=== PATIENT | female | born 1975 | race Caucasian/White ===

== ENCOUNTER 2021-02-23 07:29 | Day surgery (SDC) | payer OTHER ==
[~2021-02-23] VITALS: Ht 177.8 cm; Wt 116.8 kg
[2021-02-23] VITALS (7 sets, daily range): BP systolic 115–163; BP diastolic 64–93
[2021-02-23 08:42] LABS: HEMATOCRIT 43.9 % (37.0-47.0); IMMATURE GRANULOCYTES 0.2 % (0.0-5.0); MEAN CELL VOLUME 90.3 fL CALC (80.0-100.0); MEAN CORPUSCULAR HGB 28.8 pG CALC (26.0-32.0); MEAN CORPUSCULAR HGB CONC 31.9 g/dL CAL (32.0-36.0); NEUT# 3.45 thou/uL (2.00-7.15); RED BLOOD COUNT 4.86 mill/uL (4.20-5.60); RED CELL DISTRI WIDTH 13.6 % (11.5-15.5)
[2021-02-23 09:57] LABS: ALBUMIN 4.2 g/dL (3.2-5.0); ALKALINE PHOSPHATASE 68 u/l (38-126); ANION GAP 12 (6-22 (CALC)); BILIRUBIN, TOTAL 0.9 mg/dL (0.0-1.4); BUN 12 mg/dL (7-17); BUN/CREATININE RATIO 14 (12-20 (CALC)); CARBON DIOXIDE 27 mmol/l (22-30); CHLORIDE 105 mmol/l (95-108); CREATININE 0.9 mg/dL (0.5-1.0); GFR > 60 ML/MIN (>=60 (CALC)); GFR FOR AFR.AMER. > 60 ML/MIN (>=60 (CALC)); POTASSIUM 3.9 mmol/l (3.5-5.1); SGOT/AST 82 u/l (14-36); SODIUM 139 mmol/l (137-146)
[2021-02-23] MEDS ORDERED: CLONIDINE HCL0.1 MG PO (15:06)
[2021-02-23] MEDS ORDERED: CLONAZEPAM1 M1 PO (15:07)
[2021-02-23] MEDS ORDERED: NALTREXONE50 MG PO (15:08)
[2021-02-24] VITALS: BP 145/77
[2021-02-24 04:00] VITALS: BP 149/80
[2021-02-24 05:05] LABS: ALBUMIN 4.4 g/dL (3.2-5.0); ALKALINE PHOSPHATASE 75 u/l (38-126); ANION GAP 15 (6-22 (CALC)); BILIRUBIN, TOTAL 0.9 mg/dL (0.0-1.4); BUN 13 mg/dL (7-17); BUN/CREATININE RATIO 17 (12-20 (CALC)); CARBON DIOXIDE 24 mmol/l (22-30); CHLORIDE 105 mmol/l (95-108); CREATININE 0.8 mg/dL (0.5-1.0); GFR > 60 ML/MIN (>=60 (CALC)); GFR FOR AFR.AMER. > 60 ML/MIN (>=60 (CALC)); MAGNESIUM 2.3 mg/dL (1.6-2.3); POTASSIUM 3.8 mmol/l (3.5-5.1); SGOT/AST 69 u/l (14-36); SODIUM 139 mmol/l (137-146); TOTAL PROTEIN 8.5 g/dL (6.3-8.2)
[2021-02-24 13:46] VITALS: BP 115/66
[2021-02-24 15:41] VITALS: BP 133/83
[2021-02-24 19:16] VITALS: BP 143/76
[2021-02-24 22:44] VITALS: BP 154/65
[2021-02-25 04:40] VITALS: BP 168/88
[2021-02-25 07:54] VITALS: BP 154/82
== END 2021-02-25 10:16 | disposition home or self-care (01) | DRG 897 ==
LOC: ANR 07:29 → MS2 07:34 → ANR 02-25 10:16
PROVIDERS: ATTEND Anesthesiology
DX: F11.20 Opioid dependence, uncomplicated (principal)
CPT/HCPCS: J2060